=== PATIENT | male | born 1965 | race Caucasian/White ===

== ENCOUNTER 2017-10-17 15:00 | Outpatient (CLI) | payer MEDICAID ==
[~2017-10-17] VITALS: Ht 170.2 cm; Wt 93.9 kg
[~2017-10-17 15:00] MED LIST: ASPI-611 PO; BUPR100T16 PO; CARB1TAB23 PO; CARV3.122 PO; FURO40TA4 PO; GABA-532 PO; HYDR-569 PO; INSU100V13 SQ; LANTUS SUBCUT; LIRA0.6P2 SUBCUT; LISI-600 PO; OMEP20CA10 PO; ONDA8TAB9 PO; SIMV10TA6 PO
[2017-10-17] MEDS ORDERED: NOVALOG SQ (16:05)
[2017-10-17] MEDS ORDERED: CARB1TAB35 PO (16:05)
[2017-10-17] MEDS ORDERED: LIRA0.6P2 SUBCUT (16:05)
[2017-10-17] MEDS ORDERED: ASPI-1053 PO (16:05)
[2017-10-17] MEDS ORDERED: CARV6.253 PO (16:05)
[2017-10-17] MEDS ORDERED: LANTUS SQ ×2 (16:05)
[2017-10-17] MEDS ORDERED: AMIT-106 PO (16:05)
[2017-10-17] MEDS ORDERED: FURO20TA4 PO (16:05)
[2017-10-17] MEDS ORDERED: OMEP40CA37 PO (16:05)
[2017-10-17] MEDS ORDERED: BUPR100T7 PO (16:05)
[2017-10-17] MEDS ORDERED: GABA-532 PO (16:05)
[2017-10-17] MEDS ORDERED: LISI-644 PO (16:05)
[2017-10-17] MEDS ORDERED: ATOR40TA72 PO (16:05)
[2017-10-17 16:21] LABS: BASOPHILS # (AUTO) 0.1 X10'3 (0-0.2); BASOPHILS % (AUTO) 0.5 % (0-1); EOSINOPHILS # (AUTO) 0.1 X10'3 (0-0.9); EOSINOPHILS % (AUTO) 1.1 % (0-6); LYMPHOCYTES # (AUTO) 2.3 X10'3 (1.1-4.8); LYMPHOCYTES % (AUTO) 23.5 % (21-51); MEAN CORPUSCULAR HEMOGLOBIN 27.5 PG (27.0-31.0); MEAN CORPUSCULAR HGB CONC 33.6 % (33.0-36.5); MEAN CORPUSCULAR VOLUME 81.7 FL (78-98); MEAN PLATELET VOLUME 8.6 FL (7.4-10.4); MONOCYTES # (AUTO) 0.7 X10'3 (0-0.9); MONOCYTES % (AUTO) 7.2 % (2-12); NEUTROPHILS # (AUTO) 6.7 X10'3 (1.8-7.7); NEUTROPHILS % (AUTO) 67.7 % (42-75); PRE OP HEMATOCRIT 44.4 % (42.0-52.0); PRE OP HEMOGLOBIN 14.9 g/dL (14.0-17.9); PRE OP PLATELET COUNT 402 X10'3 (140-440); RED BLOOD COUNT 5.43 X10'6 (4.70-6.10); RED CELL DISTRIBUTION WIDTH 14.2 % (11.5-14.5)
[2017-10-17 16:30] LABS: CLARITY,URINE CLEAR (Clear); COLOR,URINE YELLOW (Yellow); GLUCOSE, URINE NEGATIVE (Neg); KETONES,URINE TRACE mg/dl (Neg); LEUKOCYTE ESTERASE ,URINE NEGATIVE (Neg); NITRITES, URINE NEGATIVE (Neg); OCCULT BLOOD,URINE NEGATIVE (Neg); PROTEIN,URINE TRACE mg/dl (Neg)
[2017-10-17 16:32] LABS: PRE OP PROTIME 10.1 SECONDS (9.0-12.0)
[2017-10-17 16:36] LABS: UA COLLECTION TYPE CLN CATCH MIDSTREAM
[2017-10-17 16:36] LABS: ALBUMIN/GLOBULIN RATIO 1.1 (1.1-1.5); ALKALINE PHOSPHATASE 79 IU/L (46-116); BLOOD UREA NITROGEN 24 MG/DL (7-18); BUN/CREATININE RATIO 20.9 (5.4-32.0); CALCIUM 9.1 MG/DL (8.5-10.1); CHLORIDE 101 MMOL/L (99-107); CREATININE 1.15 MG/DL (0.60-1.10); PRE OP ALT 29 U/L (30-65); PRE OP ANION GAP 9 (8-16); PRE OP AST 15 U/L (10-37); PRE OP BILIRUB, TOTAL 0.6 MG/DL (0.0-1.0); PRE OP GLUCOSE 122 MG/DL (70-104); PRE OP SODIUM 140 MMOL/L (135-145); TOTAL PROTEIN 7.8 G/DL (6.4-8.2); eGFR 66 ML/MIN
[2017-10-17 16:38] LABS: BACTERIA,URINE NONE SEEN /HPF (Neg); MUCUS STRANDS MODERATE /LPF (Neg); RBC,URINE NONE SEEN /HPF (0-2); SQUAMOUS EPITHELIAL CELL,UR FEW /LPF (FEW); WBC,URINE 0-4 /HPF (0-4)
[2017-10-17 16:40] LABS: HEMOGLOBIN A1C 6.7 % (4.5-6.2)
[2017-10-19] MEDS ORDERED: ringers solution, lacted 1,000 ML IV SCH (05:00)
[2017-10-19] MEDS ORDERED: Cefazolin 2GM/50ML dext iso,osmotic IVPB IV ONE (05:30)
[2017-10-19] MEDS ORDERED: famotidine 20mg tablet PO ONE (05:30)
[2017-10-19] MEDS ORDERED: VANCOMYCIN INJ 1000 MG in NORMAL SALINE 250ml IV.SOLN IV ONE (05:30)
== END 2017-10-17 23:59 | disposition home or self-care (01) ==
LOC: PRE-OP 15:00 → EDSTATUS 10-19 11:30
PROVIDERS: ATTEND Orthopaedic Surgery
DX: Z01.818 Encounter for other preprocedural examination (principal); M75.42 Impingement syndrome of left shoulder; M19.012 Primary osteoarthritis, left shoulder; M75.02 Adhesive capsulitis of left shoulder; M75.41 Impingement syndrome of right shoulder; R94.31 Abnormal electrocardiogram [ECG] [EKG]; M79.2 Neuralgia and neuritis, unspecified; M65.312 Trigger thumb, left thumb; M65.322 Trigger finger, left index finger; M65.332 Trigger finger, left middle finger; F32.89 Other specified depressive episodes; E78.5 Hyperlipidemia, unspecified; G20 Parkinson's disease; I11.0 Hypertensive heart disease with heart failure; I50.9 Heart failure, unspecified; E11.51 Type 2 diabetes mellitus with diabetic peripheral angiopathy without gangrene; I25.10 Atherosclerotic heart disease of native coronary artery without angina pectoris; I42.7 Cardiomyopathy due to drug and external agent; K21.9 Gastro-esophageal reflux disease without esophagitis; E66.01 Morbid (severe) obesity due to excess calories; I25.2 Old myocardial infarction; Z87.891 Personal history of nicotine dependence; Z95.1 Presence of aortocoronary bypass graft; Z79.899 Other long term (current) drug therapy; Z79.82 Long term (current) use of aspirin; Z98.890 Other specified postprocedural states; Z79.4 Long term (current) use of insulin
CPT/HCPCS: 36415; 80053; 81001; 83036; 85025; 85610; 85730; 93005; J0690; J3370; J7120

== ENCOUNTER 2017-12-23 12:04 | Emergency (ER) | payer MEDICAID ==
[~2017-12-23] VITALS: Ht 170.2 cm; Wt 89.6 kg
[~2017-12-23 12:04] MED LIST changes: +AMIT-106 PO; +ASPI-1053 PO; -ASPI-611 PO; +ATOR40TA72 PO; -BUPR100T16 PO; +BUPR100T7 PO; -CARB1TAB23 PO; +CARB1TAB35 PO; -CARV3.122 PO; +CARV6.253 PO; +FURO20TA4 PO; -FURO40TA4 PO; -HYDR-569 PO; -INSU100V13 SQ; +LANTUS SQ; -LANTUS SUBCUT; -LISI-600 PO; +LISI-644 PO; +NOVALOG SQ; -OMEP20CA10 PO; +OMEP40CA37 PO; -ONDA8TAB9 PO; -SIMV10TA6 PO
[2017-12-23 12:31] VITALS: BP 115/77
== END 2017-12-23 13:22 | disposition home or self-care (01) ==
LOC: ER 12:05
DX: S61.211A Laceration without foreign body of left index finger without damage to nail, initial encounter (principal); I25.10 Atherosclerotic heart disease of native coronary artery without angina pectoris; I50.9 Heart failure, unspecified; I25.2 Old myocardial infarction; E11.9 Type 2 diabetes mellitus without complications; Z95.1 Presence of aortocoronary bypass graft; Z98.890 Other specified postprocedural states; Z88.8 Allergy status to other drugs, medicaments and biological substances; Z79.82 Long term (current) use of aspirin; Z79.899 Other long term (current) drug therapy; Z79.4 Long term (current) use of insulin; W45.8XXA Other foreign body or object entering through skin, initial encounter; Y93.89 Activity, other specified; Y92.89 Other specified places as the place of occurrence of the external cause; Y99.9 Unspecified external cause status
CPT/HCPCS: 12001; 99283

== ENCOUNTER 2018-03-06 07:12 | Day surgery (SDC) | payer MEDICARE, MEDICAID ==
[2018-03-01 11:25] LABS: BASOPHILS % (AUTO) 0.4 % (0-1); EOSINOPHILS # (AUTO) 0.3 X10'3 (0-0.9); EOSINOPHILS % (AUTO) 2.9 % (0-6); LYMPHOCYTES # (AUTO) 2.5 X10'3 (1.1-4.8); LYMPHOCYTES % (AUTO) 23.7 % (21-51); MEAN CORPUSCULAR HEMOGLOBIN 27.1 PG (27.0-31.0); MEAN CORPUSCULAR HGB CONC 32.6 % (33.0-36.5); MEAN CORPUSCULAR VOLUME 83.3 FL (78-98); MEAN PLATELET VOLUME 9.2 FL (7.4-10.4); MONOCYTES # (AUTO) 0.7 X10'3 (0-0.9); MONOCYTES % (AUTO) 6.5 % (2-12); NEUTROPHILS % (AUTO) 66.5 % (42-75); PRE OP HEMATOCRIT 45.6 % (42.0-52.0); PRE OP HEMOGLOBIN 14.9 g/dL (14.0-17.9); PRE OP PLATELET COUNT 317 X10'3 (140-440); RED BLOOD COUNT 5.48 X10'6 (4.70-6.10); RED CELL DISTRIBUTION WIDTH 13.6 % (11.5-14.5)
[2018-03-01 11:28] LABS: CLARITY,URINE CLEAR (Clear); COLOR,URINE YELLOW (Yellow); GLUCOSE, URINE NEGATIVE (Neg); KETONES,URINE TRACE mg/dl (Neg); LEUKOCYTE ESTERASE ,URINE NEGATIVE (Neg); NITRITES, URINE NEGATIVE (Neg); OCCULT BLOOD,URINE NEGATIVE (Neg); PH,URINE 5.5 (4.8-8.0); PROTEIN,URINE NEGATIVE (Neg)
[2018-03-01 11:29] LABS: UA COLLECTION TYPE CLN CATCH MIDSTREAM
[2018-03-01 11:33] LABS: PRE OP PROTIME 9.7 SECONDS (9.0-12.0)
[2018-03-01 11:35] LABS: ALBUMIN 3.8 G/DL (3.4-5.0); ALKALINE PHOSPHATASE 85 IU/L (46-116); BLOOD UREA NITROGEN 20 MG/DL (7-18); BUN/CREATININE RATIO 21.7 (5.4-32.0); CALCIUM 8.9 MG/DL (8.5-10.1); CHLORIDE 105 MMOL/L (99-107); CREATININE 0.92 MG/DL (0.60-1.10); PRE OP ALT 28 U/L (30-65); PRE OP ANION GAP 8 (8-16); PRE OP AST 13 U/L (10-37); PRE OP BILIRUB, TOTAL 0.4 MG/DL (0.0-1.0); PRE OP GLUCOSE 110 MG/DL (70-104); PRE OP POTASSIUM 4.2 MMOL/L (3.4-5.1); PRE OP SODIUM 142 MMOL/L (135-145); TOTAL CARBON DIOXIDE 29.2 MMOL/L (24-32); TOTAL PROTEIN 7.5 G/DL (6.4-8.2); eGFR 85 ML/MIN
[~2018-03-06] VITALS: Ht 170.2 cm; Wt 89.4 kg
[2018-03-06] VITALS (13 sets, daily range): BP systolic 100–136; BP diastolic 63–90
[~2018-03-06 07:12] MED LIST changes: +INSU100I39; -NOVALOG SQ; +cefotetan 2gm/isosm dext IVPB 50 ML IV ONE; +famotidine 20mg tablet PO ONE; +ringers solution, lacted 1,000 ML IV SCH
[2018-03-06] MEDS ORDERED: methylene blue (5mg/ml) 50mg/10ml ampul IV ONE (07:13)
[2018-03-06] MEDS ORDERED: LIDOcaine 1% (10mg/ml) 2ml vial ONE (08:19)
[2018-03-06] MEDS ORDERED: povidone-iodine 10% topical ointment 28.4gm TP ONE (08:26)
[2018-03-06] MEDS ORDERED: BUPIVAcaine/PF 2.5mg/ml (0.25%) 10ml vial ONE (08:26)
[2018-03-06] MEDS ORDERED: methylergonovine maleate 0.2mg/ml amp ONE (08:27)
[2018-03-06] MEDS ORDERED: fentaNYL/PF 50MCG/1 ML 2ML syringe ONE (10:16)
[2018-03-06] MEDS ORDERED: MIDAZolam 5mg/5ml vial ONE (10:17)
[2018-03-06] MEDS ORDERED: ringers solution, lacted 1,000 ML IV SCH (10:39)
[2018-03-06] MEDS ORDERED: ondansetron/PF 4mg/2ml inj IV PRN (10:40)
[2018-03-06] MEDS ORDERED: fentaNYL/PF 50MCG/1 ML 2ML syringe IV PRN ×2 (10:40)
[2018-03-06] MEDS ORDERED: morphine 4 MG/ML inj SYRINge IV PRN ×2 (10:40)
[2018-03-06] MEDS ORDERED: hydrALAZINE 20mg/ml inj. IV PRN (10:40)
[2018-03-06] MEDS ORDERED: enalaprilat dihydrate 2.5mg/2ml vial IV PRN (10:40)
--- NOTE | 2018-03-06 11:16 | NUR ---
Received from OR via , accompanied by Anesthesiologist DR GILES and report given by Anesthesiolgist. AWAKE AND NATALIE PAIN. VITALS STABLE. DRESSING DI. SENSATION AT THE KNEES.
--- NOTE | 2018-03-06 12:16 | NUR ---
Report called to receiving nurse. Transferred via GURNEY Belongings . Special Issues communicated to receiving nurse. AWAKE AND ORIENTED. VITALS STABLE. DRESSING DI. PIV DC,D DUE TO INFILTRATED. TO PAS RM [phone] AT THIS TIME.
--- NOTE | 2018-03-06 15:55 | NUR ---
PT BROUGHT BACK TO PACU FOR FURTHER RECOVERY FROM SAB. SCANNED PT'S BLADDER REVEALING APPROXIMATELY 380CC PT HAS NOT VOIDED AND STATES HE ONLY PEES TWICE A DAY AT HOME. STATES HE CAN NOW FEEL THE BOTTOM OF HIS FEET. BUT OF 1499 PT WAS NOT ABLE TO STAND UP ON HIS OWN. PT ABLE TO LIFT LEGS FROM SEATED POSITION TO LAYING BACK ON THE GURNEY AND SCOOT HIMSELF UP. PT STILL DENIES ANY PAIN OR NAUSEA. REPORT GIVEN TO MAMI VARGAS.
--- NOTE | 2018-03-06 16:10 | NUR ---
PT AWAKE AND ORIENTED. VITALS STABLE. NATALIE FONSECA. IS ABLE TO BEAR WEIGHT WITHOUT ASSISTANCE. HOME WITH HIS SPOUSE AT THIS TIME.
== END 2018-03-06 16:10 | disposition home or self-care (01) ==
LOC: PAS 07:12
PROVIDERS: ATTEND Surgery
DX: L05.01 Pilonidal cyst with abscess (principal); I13.0 Hypertensive heart and chronic kidney disease with heart failure and stage 1 through stage 4 chronic kidney disease, or unspecified chronic kidney disease; E11.22 Type 2 diabetes mellitus with diabetic chronic kidney disease; N18.9 Chronic kidney disease, unspecified; I50.9 Heart failure, unspecified; G20 Parkinson's disease; E11.42 Type 2 diabetes mellitus with diabetic polyneuropathy; F12.90 Cannabis use, unspecified, uncomplicated; F32.9 Major depressive disorder, single episode, unspecified; G43.909 Migraine, unspecified, not intractable, without status migrainosus; I25.2 Old myocardial infarction; I25.118 Atherosclerotic heart disease of native coronary artery with other forms of angina pectoris; K21.9 Gastro-esophageal reflux disease without esophagitis; M19.90 Unspecified osteoarthritis, unspecified site; F15.11 Other stimulant abuse, in remission; Z86.74 Personal history of sudden cardiac arrest; Z87.442 Personal history of urinary calculi; Z86.14 Personal history of Methicillin resistant Staphylococcus aureus infection; Z72.89 Other problems related to lifestyle; Z79.82 Long term (current) use of aspirin; Z79.891 Long term (current) use of opiate analgesic; Z79.4 Long term (current) use of insulin; Z95.1 Presence of aortocoronary bypass graft; Z87.891 Personal history of nicotine dependence; Z98.890 Other specified postprocedural states; Z88.8 Allergy status to other drugs, medicaments and biological substances; Z79.899 Other long term (current) drug therapy
CPT/HCPCS: 11771; 36415; 71046; 80053; 81003; 82948; 85025; 85610; 85730; A6266; A6449; J2210; J2250; J3010; J3490; J7120; A7000